=== PATIENT | female | born 1985 | race Caucasian/White ===

== ENCOUNTER 2019-10-23 15:05 | Outpatient (CLI) | payer OTHER, SELFPAY ==
--- NOTE | ~2019-10-23 | US_ITS ---
EXAMINATION: US pelvic complete w TV DATE: 10/23/2019 15:50 INDICATION: Menorrhagia, recent IUD removal TECHNIQUE: Multiple transabdominal and endovaginal sonographic images of the pelvis were obtained. COMPARISON: None. FINDINGS: The uterus measures 10.0 x 4.7 x 5.0 cm. The endometrial complex measures 10 mm. There is a nabothian cyst of the cervix. In addition, there appears to be a small amount of fluid in the lower endocervical canal. The right ovary measures 3.0 x 1.9 x 1.6 cm. The left ovary measures 5.3 x 2.9 x 3.7 cm and contains small cysts. There is normal vascular flow in the ovaries. There is no free fluid in the pelvis. IMPRESSION: 1. Small amount of fluid in the lower endocervical canal which could be related to recent procedure. Reviewed, dictated and finalized at location B.
== END 2019-10-23 15:06 | disposition home or self-care (01) ==
PROVIDERS: Visit Provider Obstetrics & Gynecology
DX: N92.1 Excessive and frequent menstruation with irregular cycle (principal)
CPT/HCPCS: 76830; 76856

== ENCOUNTER 2019-12-15 08:47 | Outpatient (CLI) | payer OTHER, SELFPAY ==
[2019-12-16 18:20] LABS: SARS-CoV-2 RNA PCR Negative
== END 2019-12-15 08:48 | disposition home or self-care (01) ==
PROVIDERS: PCP Internal Medicine; Visit Provider Internal Medicine
DX: Z20.828 Contact with and (suspected) exposure to other viral communicable diseases (principal)
CPT/HCPCS: 87635; C9803; U0003

== ENCOUNTER 2020-01-04 10:01 | Outpatient (CLI) | payer OTHER, SELFPAY ==
[2020-01-04 11:34] LABS: SARS-CoV-2 Ag Negative (Negative)
== END 2020-01-04 10:02 | disposition home or self-care (01) ==
PROVIDERS: PCP Internal Medicine; Visit Provider Internal Medicine
DX: Z20.828 Contact with and (suspected) exposure to other viral communicable diseases (principal)
CPT/HCPCS: 87426

== ENCOUNTER 2020-06-20 10:11 | Outpatient (CLI) | payer OTHER, SELFPAY ==
[2020-06-20 11:28] LABS: Influenza A QL RT-PCR Negative (Negative); Influenza B QL RT-PCR Negative (Negative); SARS-CoV-2 RNA PCR Negative (Negative)
== END 2020-06-20 10:12 | disposition home or self-care (01) ==
LOC: CHSLAB 10:13
PROVIDERS: PCP Internal Medicine; Visit Provider Internal Medicine
DX: R50.9 Fever, unspecified (principal); J06.9 Acute upper respiratory infection, unspecified; Z20.822 Contact with and (suspected) exposure to COVID-19
CPT/HCPCS: 36415; 87081; 87502; 87880; C9803; U0003; U0005

== ENCOUNTER 2021-02-01 21:20 | Emergency (ER) | payer OTHER, SELFPAY ==
[2021-02-01 21:37] VITALS: BP 128/84; PULSE 77; RESP 18; TEMP 36.9; O2SAT 97
[2021-02-02 00:37] VITALS: BP 130/86; PULSE 69; RESP 17; O2SAT 98
--- NOTE | 2021-02-02 00:59 | ED.GENADULT ---
[facility] - General Adult General Chief complaint: Unspecified Stated complaint: left side neck soreness, hx of tonsilitis Time Seen by Provider: 02/02/21 00:35 Source: patient Mode of arrival: ambulatory Limitations: no limitations History of Present Illness HPI narrative: Patient is a 35-year-old female complaining of sore throat, I think Tonsillitis , accompanied by low-grade fever, 99 started 2 days ago. Patient states that she has a history of tonsillitis in the past and usually antibiotic resolves it. Patient denies dysphagia, shortness of, nausea, or vomiting. Patient denies any cough or nasal congestion. Related Data Allergies Allergy/AdvReac Type Severity Reaction Status Date / Time No Known Allergies Allergy Verified 02/02/21 00:38 Review of Systems Review of Systems: All systems reviewed & are unremarkable except as noted in HPI and below Constitutional: Constitutional: Reports as per HPI PMFSH Comments Past medical history: None Family history: None Social history: Non-smoker no EtOH or drug use Exam Const: General: cooperative, healthy appearing, comfortable, no acute distress, well developed, alert and awake; No confusion Orientation/consciousness: oriented to person, oriented to place, oriented to time, patient oriented x3 and No confusion Limitations: no limitations HENMT: Head: normal to inspection, normocephalic and atraumatic Ears: hearing grossly normal bilaterally, TM normal on the right and TM normal on the left General nose exam: Normal external nose present, Normal nares present and No nasal discharge present Face and sinus: normal facial exam Mouth: Yes Normal oral and palatal mucosa present, Yes lip normal, Yes tongue normal, No drooling and Yes other (Negative for drooling, negative for muffled voice, negative for malodorous ) Throat: posterior oropharynx abnormal edema and erythema and uvular edema Eyes: General: appearance normal, both eyes and all related structures Pupils: Equal, round and reactive pupils present EOM: EOMs intact bilaterally Neck: Neck: normal visual inspection, full ROM, no lymphadenopathy and no meningeal signs Chest: Chest palpation & inspection: normal inspection of the chest Resp: Effort & Inspection: normal respiratory effort, able to speak in complete sentences, no respiratory distress and not tachypneic Auscultation: clear to auscultation bilaterally, no crackles, no rales, no rhonchi and no wheezes Cardio: Rate: regular rate Rhythm: regular rhythm GI: Inspection: normal to inspection GI Palp: No abdominal tenderness, Yes Soft to palpation, No Tenderness to palpation present (GI), No Guarding due to palpation present (GI), No Rigid due to palpation and No Rebound tenderness present Auscultation: normal bowel sounds : General: Yes no CVA tenderness Back/Spine/Pelvis: Back: no CVA tenderness Skin: General skin exam: normal color, no rashes or lesions noted, elasticity normal and turgor normal Neuro: General: oriented to person, oriented to place, oriented to time, patient oriented x3, tone normal, moves all extremities, Normal light touch and pain sensation, no meningeal signs, no focal motor deficits, CN's II-XI intact bilaterally and No confusion Cranial nerves: Yes Equal, round and reactive pupils present Speech: No Abnormal speech present Sensory Exam: No Sensory deficit (Neuro) Extrem: General: normal to inspection, full ROM and capillary refill normal Psych: Appearance: grossly normal and well kempt Mental Status: mental status grossly normal Speech and movement: Normal speech and movement present Affect: normal affect Attitude: cooperative Thought process: Normal thought process present Thought content: Yes Normal thought content present Insight: Good insight present (Psych) Judgement: Good judgement present (Psych) Course Vital Signs Vital signs: Vital Signs Temperature 36.9 C 02/01/21 21:37 Pulse Rate 77 02/01/21 21:37 Respir
[2021-02-02 02:07] VITALS: BP 122/81; PULSE 64; RESP 15; O2SAT 99
== END 2021-02-02 02:10 | disposition home or self-care (01) ==
PROVIDERS: Emergency Provider Emergency Medicine; PCP Internal Medicine
DX: J02.8 Acute pharyngitis due to other specified organisms (principal)
CPT/HCPCS: 81025; 87081; 87880; 96372; 99283; J1100

== ENCOUNTER 2021-02-16 13:06 | Outpatient (CLI) | payer OTHER, SELFPAY ==
--- NOTE | ~2021-02-16 | XR_ITS ---
EXAMINATION: XR shoulder RT min 2V DATE: 02/16/2021 13:22 INDICATION: Right shoulder pain. TECHNIQUE: 4 views of right shoulder were obtained. COMPARISON: None. FINDINGS: Bone alignment is normal. No fracture. Joint spaces are well maintained. IMPRESSION: 1. Normal right shoulder. Reviewed, dictated and finalized at location A. [employer] IMPRESSION: 1. Normal right shoulder.
== END 2021-02-16 13:07 | disposition home or self-care (01) ==
LOC: CHSIMG 13:07
PROVIDERS: PCP Internal Medicine; Visit Provider Internal Medicine
DX: M25.511 Pain in right shoulder (principal)
CPT/HCPCS: 73030

== ENCOUNTER 2021-10-03 07:56 | Outpatient (CLI) | payer OTHER, BC, SELFPAY ==
--- NOTE | ~2021-10-03 | CT_ITS ---
EXAMINATION: CT abdomen wo/w con INDICATION: Weight gain and fatigue TECHNIQUE: Computed tomographic images of the abdomen were obtained prior to then following the admin istration of 100 cc of Omnipaque 350 intravenous contrast. The dose-length product (DLP) was 759.84 m Gy-cm. Automated exposure control and iterative reconstruction technique were employed. COMPARISON: 01/27/2008 FINDINGS: The lung bases are clear. The heart size is normal. The spleen, pancreas, and gallbladder a re normal. There is a 9 mm lesion of the right hepatic lobe which is isodense to liver on the delayed image, consistent with a hemangioma. The adrenal glands are unremarkable. No adrenal mass is identif ied. There is a 3 mm nonobstructing stone of the left kidney. There is a 4 mm cyst of the left kidney . The right kidney is unremarkable. There are no pathologically enlarged abdominal lymph nodes. There is no free intraperitoneal gas or evidence of bowel obstruction. IMPRESSION: 1. No CT correlate for the patient's symptoms. Reviewed, dictated and finalized at location B.
== END 2021-10-03 07:57 | disposition home or self-care (01) ==
PROVIDERS: PCP Internal Medicine; Visit Provider Internal Medicine
DX: E27.5 Adrenomedullary hyperfunction (principal)
CPT/HCPCS: 74170; Q9967

== ENCOUNTER 2023-10-08 10:47 | Outpatient (CLI) | payer OTHER, SELFPAY ==
--- NOTE | ~2023-10-08 | US_ITS ---
Pelvic ultrasound. Clinical History: Pelvic pain Technique: Realtime transabdominal and transvaginal scanning of the pelvis was performed. Color flow Doppler and Doppler spectral analysis were performed. Findings: The uterus is anteverted, and measures 9.7 x 4.4 x 5.2 cm. The endometrial stripe has a th ickness of 10 mm. There is a small intramural fibroid at the fundus measuring 1.3 cm in diameter. The right ovary measures 2.9 x 3.9 x 2.1 cm. No significant right ovarian or adnexal mass is seen. The left ovary measures 2.5 x 1.9 x 1.9 cm. No significant left ovarian or adnexal mass is seen. There is no evidence of free fluid in the cul de sac. Impression: 1.3 cm fibroid. Reviewed, dictated and finalized at [facility]. Impression: 1.3 cm fibroid.
--- NOTE | ~2023-10-08 | US_ITS ---
EXAMINATION: US retroperitoneal comp DATE: 10/08/2023 11:31 INDICATION: Incomplete bladder emptying. TECHNIQUE: Multiple ultrasound grayscale images of the kidneys were obtained. COMPARISON: CT abdomen 10/03/2021 FINDINGS: The right kidney measures 11.5 x 4.4 x 4.4 cm. The left kidney measures 10.7 x 4.9 x 5.7 cm. The kidn eys demonstrate normal parenchymal echogenicity. There is no hydronephrosis. The bladder is normal. T he prevoid bladder volume is 214 mL. The post void bladder volume is 3 mL. IMPRESSION: 1. Normal kidneys. No hydronephrosis. 2. Normal bladder. Reviewed, dictated and finalized at location A.
== END 2023-10-08 10:48 ==
PROVIDERS: PCP Obstetrics & Gynecology; Visit Provider Internal Medicine
DX: D25.1 Intramural leiomyoma of uterus (principal); R33.8 Other retention of urine
CPT/HCPCS: 76770; 76830; 76856

== ENCOUNTER 2024-05-09 19:12 | Emergency (ER) | payer OTHER, SELFPAY ==
--- NOTE | 2024-05-09 19:13 | ED.URI ---
HPI - URI/Sore Throat General Chief Complaint: Upper Respiratory Infection Stated Complaint: Strep Symptoms Time Seen by Provider: 05/09/24 19:13 Source: patient Mode of arrival: ambulatory Limitations: no limitations History of Present Illness HPI Narrative: Stacia is a 39-year-old female patient presenting to the clinic today with complaints of sore throat since last night. States she has a headache, sore throat, and some body aches. No known fevers. Denies any chest pain or shortness of breath. Related Data Home Medications ?Medication ?Instructions ?Recorded ?Confirmed ?Last Taken ?Type bupropion HCl 300 mg 24 hr tablet, mg PO 05/09/24 Unknown History extended release estradiol 0.0375 mg/24 hr 05/09/24 Unknown History semiweekly transdermal patch estradiol 0.05 mg/24 hr semiweekly 05/09/24 Unknown History transdermal patch metformin 500 mg tablet,extended mg PO 05/09/24 Unknown History release 24 hr progesterone micronized 100 mg mg 05/09/24 Unknown History capsule Allergies Allergy/AdvReac Type Severity Reaction Status Date / Time No Known Allergies Allergy Verified 05/09/24 19:14 Review of Systems Review of Systems: Pertinent positives per HPI. Patient denies any fever, chills, rash, headache, visual changes, dizziness, cough, shortness of breath, chest pain, palpitations, nausea, vomiting, diarrhea, constipation, abdominal pain, or any urinary issues. PMFSH Comments At the time of my signature, I reviewed and agree with the nursing past medical, surgical, social, and family history. There is no relevant family history pertinent to the patient complaint. Exam Narrative: General: Well-developed, well nourished, in no apparent distress Head: Normocephalic, atraumatic Eyes: Pupils equally round and reactive to light bilaterally, EOM intact, sclera and conjunctive clear, no discharge, lids normal Ears: TMs intact and clear, ear canals clear, no drainage, grossly hearing normal. Nose: Nares patent, no discharge, no inflammation, no sinus tenderness. Mouth: Oral pharynx red with mild tonsillar enlargement without lesions or masses, good dentition, MMM. Neck: Supple, trachea midline, no enlargement of anterior or posterior cervical nodes, no thyroid masses or goiter palpable. Cardio: Regular rate and rhythm, s1 and s2 normal, no murmur appreciated. Resp: Clear to auscultation bilaterally, no rhonchi, rales, wheezing or rubs Course Course Emergency Course: Portions of this record may have been created with voice recognition software. Level of Care: Express Care Visit Vital Signs Vital signs: Vital Signs Temperature 37.1 C 05/09/24 19:26 Pulse Rate 86 05/09/24 19:26 Respiratory Rate 16 05/09/24 19:26 Blood Pressure 129/72 05/09/24 19:26 Pulse Oximetry 98 05/09/24 19:26 Oxygen Delivery Room Air 05/09/24 19:26 Temperature 37.1 C 05/09/24 19:26 Pulse Rate 86 05/09/24 19:26 Respiratory Rate 16 05/09/24 19:26 Blood Pressure 129/72 05/09/24 19:26 Pulse Oximetry 98 05/09/24 19:26 Oxygen Delivery Room Air 05/09/24 19:26 Vital signs reviewed MDM - URI/Sore Throat MDM Narrative Medical decision making narrative: At the time of visit patient is resting comfortably on the exam table. Patient appears to be nontoxic. Labs: Strep test was positive in the clinic today. Plan: Patient has strep pharyngitis. Amoxicillin prescription sent to the pharmacy. Supportive measures were discussed with the patient and they voiced understanding discharge instructions and agrees to treatment plan. Return precautions reviewed Differential Diagnosis Differential diagnosis: Likely upper respiratory infection, otitis media, sinusitis, viral infection, bronchitis, influenza, pharyngitis and other (COVID) Lab Data Labs: Lab Results 05/09/24 Range/Units 19:30 POC Grp A Strep Screen Positive (Negative) Discharge Plan Discharge Clinical Impression: Strep pharyngitis Patient Disposition: Home, Self-Care Condition: Stable Instructions: Antibiotic Form, Strep Throat (ED) Additional Instructions: Strep test was positive in the clinic today. Take prescription medications only as prescribed-amoxicillin Change your toothbrush in 24 hours after initiation of the antibiotics Increase fluids and stay well hydrated Tylenol/motrin for pain/fever Flonase and OTC antihistamines as directed Vicks vapor rub to open sinuses Sinus rinses for congestion Cepacol spray, cough drops, throat lozenges, warm tea with honey/lemon, gargle salt water to soothe throat BRAT diet for diarrhea Clear liquids x 24 hours then advance as tolerated for nausea/vomiting Go to the ED if you develop a worsening in your condition- high fever not controlled by Tylenol or Motrin, dehydration, weakness, lethargy, shortness of breath, or chest pain. Follow up with your PCP in 3-5 days if symptoms persist. Patient Language: Sudanese Prescriptions: New amoxicillin 875 mg tablet 875 mg PO Q12H 10 Days Qty: 20 0RF No Action estradiol 0.05 mg/24 hr patch semiweekly estradiol 0.0375 mg/24 hr patch semiweekly bupropion HCl 300 mg tablet extended release 24 hr PO metformin 500 mg tablet extended release 24 hr PO progesterone micronized 100 mg capsule Follow-up/Referrals: UNKNOWN,DOCTOR [Non-Staff] - Time of Disposition: 19:27 Quality NIHSS Nursing Documentation ED NIHSS nursing documentation: reviewed/agree
[2024-05-09 19:26] VITALS: BP 129/72; PULSE 86; RESP 16; TEMP 37.1; O2SAT 98
[2024-05-09 19:32] LABS: EDSTREPNEGPOS1 Positive (Negative)
== END 2024-05-09 19:29 | disposition home or self-care (01) ==
PROVIDERS: Emergency Provider Nurse Practitioner Family
DX: J02.0 Streptococcal pharyngitis (principal)
CPT/HCPCS: 87880; 99213; G0463

== ENCOUNTER 2024-07-18 08:30 | Emergency (ER) | payer OTHER, SELFPAY ==
[2024-07-18 08:45] VITALS: BP 118/79; PULSE 80; RESP 16; TEMP 36.5; O2SAT 100
--- NOTE | 2024-07-18 08:45 | ED.URI ---
HPI - URI/Sore Throat General Chief Complaint: Upper Respiratory Infection Stated Complaint: Strep Symptoms Time Seen by Provider: 07/18/24 08:45 History of Present Illness HPI Narrative: 39 y/o female presented for c/o sore throat and body aches. Onset 3 days. Says the throat pain is worse since yesterday, and worse on the right side of the throat. Denies n/v/d/f/c. Taking ibuprofen. Related Data Home Medications ?Medication ?Instructions ?Recorded ?Confirmed ?Last Taken ?Type bupropion HCl 300 mg 24 hr tablet, mg PO 05/09/24 Unknown History extended release estradiol 0.05 mg/24 hr semiweekly 05/09/24 Unknown History transdermal patch metformin 500 mg tablet,extended mg PO 05/09/24 Unknown History release 24 hr progesterone micronized 100 mg mg 05/09/24 Unknown History capsule Allergies Allergy/AdvReac Type Severity Reaction Status Date / Time No Known Allergies Allergy Verified 07/18/24 08:42 Review of Systems Review of Systems: CONSTITUTIONAL: Denies body aches, fever, chills, or sweats. EYES: Denies visual changes, redness, or discharge. ENT: reports sore throat rhinorrhea, Denies congestion, or otalgia. CARDIOVASCULAR: Denies chest pain, palpitations, or edema. RESPIRATORY: Denies dyspnea. GASTROINTESTINAL: Denies abdominal pain, nausea, vomiting, or diarrhea. SKIN: Denies rash NEUROLOGIC: Denies headache Exam Narrative: GENERAL: mildly Ill-appearing, no acute distress. EYES: conjunctivae clear ENT: Mucous membranes moist. TM pearly chopra with normal light reflex bilaterally; no tragal tenderness. Oropharynx erythematous without lesions. Tonsils enlarged and symmetrical 2+ with exudate. No drooling, no hoarseness, no trismus, uvula midline. No tripod positioning, hot potato voice, or soft palate swelling. NECK: Supple. bilateral anterior cervical lymphadenopathy CHEST: Clear to auscultation, breath sounds equal. No respiratory distress, speaks in full sentences. HEART: Regular rate and rhythm. No murmur heard. SKIN: Warm, dry, no rash. NEURO: Alert and oriented x3. Course Course Emergency Course: Patient is aware of diagnosis, understands and agrees to treatment plan. Anticipatory guidance given. Patient agrees to follow-up as directed and is aware of reasons to seek care at the emergency department. Portions of this record may have been created with voice recognition software Level of Care: Express Care Visit MDM - URI/Sore Throat MDM Narrative Medical decision making narrative: strep result reviewed with pt. Will treat based on PE and CC. Advise supportive treatments. Patient is appropriate for outpatient treatment and follow-up. Differential Diagnosis Differential diagnosis: Likely upper respiratory infection, viral infection and pharyngitis Discharge Plan Discharge Clinical Impression: Exudative tonsillitis Patient Disposition: Home Condition: Stable Instructions: Antibiotic Form, Strep Throat (ED) Additional Instructions: - Take the antibiotic as directed. Fever and sore throat typically resolve within one to three days. Most patients can return to work, after 12 to 24 hours of antibiotic therapy, provided you are fever free and otherwise well. -Eat and drink things that are easy to swallow, like soft foods, cool liquids, tea with honey, or popsicles . -Salt water gargles and/or may use topical anesthetic ( Chloraseptic spray) or lozenges to relieve dryness or throat pain -Alternate Tylenol and ibuprofen as needed for pain and fever as directed. -Frequent hand washing or hand vulcanizing machine operator is one of the best ways to prevent spread of infection. Throw away the toothbrush after 24hours of antibiotic. -Follow up with primary care provider in 2-3 days if condition is not improving -Go to the ER if you have trouble breathing, cannot drink enough fluids, have muffled voice or drooling, difficulty opening your mouth, or severe swelling. Patient Language: Kazakh Prescriptions: New amoxicillin 500 mg tablet 1,000 mg PO DAILY 10 Days Qty: 20 0RF No Action estradiol 0.05 mg/24 hr patch semiweekly bupropion HCl 300 mg tablet extended release 24 hr PO metformin 500 mg tablet extended release 24 hr PO progesterone micronized 100 mg capsule Follow-up/Referrals: UNKNOWN,DOCTOR [Primary Care Provider] -
[2024-07-18 08:54] LABS: EDSTREPNEGPOS1 Negative (Negative)
== END 2024-07-18 09:07 | disposition home or self-care (01) ==
PROVIDERS: Emergency Provider Nurse Practitioner Family
DX: J03.90 Acute tonsillitis, unspecified (principal)
CPT/HCPCS: 87081; 87880; 99213; G0463